=== PATIENT | male | born 1960 | race African-American/Black ===

== ENCOUNTER 2024-12-04 08:40 | Outpatient (CLI) | payer OTHER, SELFPAY ==
--- NOTE | ~2024-12-04 | MR_ITS ---
EXAMINATION: MR knee LT wo con DATE: 12/04/2024 09:18 INDICATION: Left knee pain TECHNIQUE: Magnetic resonance imaging (MRI) of the left knee was performed without intravenous contrast. Sequences included coronal PD-weighted FSE, coronal PD-weighted FS FSE, sagittal T2-weighted FSE, sagittal PD-weighted FS FSE and axial PD weighted fat saturated FSE. COMPARISON: None. FINDINGS: Medial compartment: Medial meniscus is normal. There is deep chondral ulceration which appears to involve greater than 50% the cartilage thickness along much of the anterior to central weightbearing medial femoral condyle. There is mild subarticular edema- like signal change along the lateral margin of the anterior weightbearing medial femoral condyle. Mild partial-thickness cartilage loss with smooth chondral surface and without degenerative subchondral changes at the medial tibial plateau. Lateral compartment: Mild partial-thickness cartilage loss with smooth chondral surface along the weightbearing lateral femoral condyle with marrow edema-like signal change along the lateral rim of the anterior weightbearing lateral femoral condyle. Cartilage along the lateral femoral condyle is normal. Patellofemoral compartment: Shallow chondral fissuring at the central aspect of the lateral patellar facet. Partial-thickness chondral ulceration with chondral surface regularity but without degenerative subchondral changes at the trochlear groove and medial aspect of the lateral trochlea and with mild subarticular edema-like signal change at the medial trochlea. Ligaments and tendons: Anterior and posterior cruciate ligaments are normal. The medial collateral ligament and fibular collateral ligament complex are normal. There is some laxity to the patellar tendon with bands of magic angle artifact extending across the otherwise normal patellar tendon. Moderate quadriceps tendinopathy with full-thickness tear involving the entire rectus femoris and components of the tendon the vastus medial vastus lateralis components of the tendon remain intact. There is approximately 1 cm retraction of the torn central portion of the tendon. The visualized medial and lateral hamstring tendons as well as the iliotibial band are normal. Fluid: Minimal left knee joint effusion with fluid collection predominantly in the medial gutter of the suprapatellar pouch and with small amount of fluid extending into the quadriceps tendon tear defect. No loose osteochondral bodies identified. Osseous/other: There is a serpiginous pattern of low signal and parallel increased T2 signal in the distal metadiaphyseal region of the femur with classic appearance for chronic bone infarct. No fracture or pathologic marrow replacing process. There is additional mild osteoarthritis at the proximal tibiofibular articulation with mild subarticular cystlike changes along the tibial side of the joint space. IMPRESSION: 1. Moderate tendinopathy and complete tear of the rectus femoris and vastus intermedius intermedius components of the distal quadriceps tendon. 2. 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 3. 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 Reviewed, dictated and finalized at location A. IMPRESSION: 1. Moderate tendinopathy and complete tear of the rectus femoris and vastus int ermedius intermedius components of the distal quadriceps tendon. 2. Mild tricompartmental osteoarthritis with extensive moderate grade chondroma lacia in all 3 compartments and small regions of high-grade chondromalacia at t he medial and patellofemoral compartments. 3. 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
== END 2024-12-04 08:41 | disposition home or self-care (01) ==
LOC: GOSHIMG 08:41
DX: M17.12 Unilateral primary osteoarthritis, left knee (principal); S76.112A Strain of left quadriceps muscle, fascia and tendon, initial encounter; X58.XXXA Exposure to other specified factors, initial encounter
CPT/HCPCS: 73721